=== PATIENT | male | born 2000 | race Caucasian/White ===

== ENCOUNTER 2022-12-22 10:46 | Outpatient (REF) | payer BC, SELFPAY ==
--- NOTE | 2022-12-22 10:57 | EMG_ITS ---
Chief complaint: Left upper extremity pain from shoulder down to wrist Reason for referral: Evaluate for plexopathy or Carpal Tunnel Syndrome Referred by: Dr. Jose Pham Procedure done: Left upper extremity NCS/EMG Precautions and/or limitations: None The limb temperature was monitored continuously and remained between 32-36 degrees C during the performance of the NCS. Nerve Conduction Studies Anti Sensory Summary Table ?Stim Site NR Onset (ms) Norm Onset (ms) Peak (ms) Norm Peak (ms) O-P Amp (?V) Norm O-P Amp Site1 Site2 Delta-0 (ms) Dist (cm) Luke (m/s) Norm Luke (m/s) Left Lat Ante Brach Cutan Anti Sensory (Lat Forearm) Lat Biceps ? 0.9 1.3 14.8 Lat Biceps Lat Forearm 0.9 0.0 Left Med Ante Brach Cutan Anti Sensory (Med Forearm) Elbow ? 0.5 0.7 15.6 Elbow Med Forearm 0.5 0.0 Left Median Anti Sensory (2nd Digit) Wrist ? 2.5 3.3 <3.6 61.0 >10 Wrist 2nd Digit 2.5 14.0 56 Left Radial Anti Sensory (Thumb) Forearm ? 1.7 2.3 <3.1 27.0 Forearm Thumb 1.7 0.0 Left Ulnar Anti Sensory (5th Digit) Wrist ? 3.1 3.7 <3.7 26.7 >15.0 Wrist 5th Digit 3.1 14.0 45 Motor Summary Table ?Stim Site NR Onset (ms) Norm Onset (ms) O-P Amp (mV) Norm O-P Amp iAmp (mV) Amp (1st) (%) Site1 Site2 Delta-0 (ms) Dist (cm) Luke (m/s) Norm Luke (m/s) Left Median Motor (Abd Poll Brev) Wrist ? 3.5 <3.9 10.6 >4.5 13.0 100.0 Elbow Wrist 4.1 22.0 54 >45 Elbow ? 7.6 9.8 12.1 92.5 Left Ulnar Motor (Abd Dig Minimi) Wrist ? 2.8 <3.0 11.4 >5 14.2 100.0 B Elbow Wrist 3.7 20.0 54 >45 B Elbow ? 6.5 10.9 13.6 95.6 A Elbow B Elbow 1.7 10.0 59 >45 A Elbow ? 8.2 10.4 12.8 91.2 Paraspinal EMG ?Side Muscle Nerve Root Ins Act Fibs Psw Comment Left Cervical Upper Rami Nml Nml Nml Left Cervical Mid Rami Nml Nml Nml Left Cervical Lower Rami Nml Nml Nml EMG ?Side Muscle Nerve Root Ins Act Fibs Psw Amp Dur Poly Recrt Int Pat Comment Left 1stDorInt Ulnar C8-T1 Nml Nml Nml Nml Nml 0 Nml Complete Left FlexCarRad Median C6-7 Nml Nml Nml Nml Nml 0 Nml Complete Left Biceps Musculocut C5-6 Nml Nml Nml Nml Nml 0 Nml Complete Left Triceps Radial C6-7-8 Nml Nml Nml Nml Nml 0 Nml Complete Left Deltoid Axillary C5-6 Nml Nml Nml Nml Nml 0 Nml Complete FINDINGS: All motor and sensory nerves tested showed normal latencies, amplitudes and conduction velocities. Concentric needle EMG was performed in selected muscles of the left upper extremity and cervical paraspinal. Study did not reveal signs of electric abnormalities as shown in the table below. IMPRESSION: 1. This is a normal study. 2. There is no electrodiagnostic evidence for median neuropathy, ulnar neuropathy, brachial plexopathy, or cervical radiculopathy. Thank you for your kind referral. Dayna Heath MD, ALAN Board Certified, [place] [employer] and [employer] (ABPMR) Board Certified, [place] Board [employer] Electrodiagnostic Medicine (ABEM) CODIN [id number] x 2 MTDD
== END 2022-12-22 10:47 | disposition home or self-care (01) ==
LOC: HO.NEURO 10:46
PROVIDERS: Visit Provider Family Medicine
DX: G54.0 Brachial plexus disorders (principal)
CPT/HCPCS: 95886; 95910

== ENCOUNTER → 2022-12-22 10:57 | Outpatient (BNV) | payer BC, SELFPAY | PROVIDERS: Visit Provider Physical Medicine & Rehabilitation | DX: M79.602 Pain in left arm (principal) | CPT/HCPCS: 95886; 95910 ==

== ENCOUNTER 2023-01-12 14:55 | Outpatient (REF) | payer BC, SELFPAY ==
--- NOTE | ~2023-01-12 | MR_ITS ---
EXAMINATION: MR CERVICAL SPINE WITHOUT CONTRAST CLINICAL INFORMATION: Left arm radicular symptoms. COMPARISON: None available. TECHNIQUE: MRI of the cervical spine was obtained using routine sequences without contrast. FINDINGS: The marrow signal is homogeneous and the discs are well hydrated. No disc protrusions are visible. There is no central canal stenosis or foraminal narrowing. No pseudomeningocele is seen in the neural foramina. No cord signal abnormality is identified. There is no syrinx. The paraspinal soft tissues are normal. The vertebral artery flow-voids are maintained. There is a mild leftward curvature of the cervical spine. The lung apices are grossly clear. MR/MR cervical spine wo con IMPRESSION: Aside from a mild leftward curvature of the cervical spine, relatively normal study.
== END 2023-01-12 14:56 | disposition home or self-care (01) ==
LOC: HO.MRI 14:55
PROVIDERS: Visit Provider Family Medicine
DX: G54.0 Brachial plexus disorders (principal)
CPT/HCPCS: 72141